=== PATIENT | male | born 1935 | race Caucasian/White ===

== ENCOUNTER → 2016-09-17 | Outpatient (CLI) | payer MEDICARE, OTHER ==
[~2016-09-17] VITALS: Ht 175.3 cm; Wt 53.5 kg
[~2016-09-17] MED LIST: AMIO200T44 PO; APIX2.5T PO; ASPI-1093 PO; CLON.1 PO; DIGO125T PO; FA/M1TAB2 PO; FOLI1TAB15 PO; HYDR-3965 PO; LOMO PO; SIMV-261 PO; TRAZ-144 PO
[2016-09-17 10:39] VITALS: BP 132/75
== END | disposition home or self-care (01) ==
LOC: SRCNTR 10:26
PROVIDERS: ATTEND Internal Medicine Cardiovascular Disease
DX: I10 Essential (primary) hypertension (principal); I25.10 Atherosclerotic heart disease of native coronary artery without angina pectoris; I48.0 Paroxysmal atrial fibrillation; E78.5 Hyperlipidemia, unspecified; Z95.1 Presence of aortocoronary bypass graft; I71.4 Abdominal aortic aneurysm, without rupture; Z85.038 Personal history of other malignant neoplasm of large intestine
CPT/HCPCS: G0463